=== PATIENT | female | born 1945 | race Caucasian/White ===

== ENCOUNTER 2018-06-06 11:19 | Outpatient (CLI) | payer OTHER ==
[~2018-06-06 11:19] MED LIST: NEURONTIN600 MG; SINVASTATIN; VASOTEC10 MG; [UNRECOGNIZED DRUG - OTHER]
== END 2018-06-06 16:38 | disposition home or self-care (01) ==
LOC: RAD 11:19
DX: M54.2 Cervicalgia (principal); S80.02XA Contusion of left knee, initial encounter

== ENCOUNTER 2021-07-14 19:26 | Emergency (ER) | payer OTHER ==
[~2021-07-14] VITALS: Ht 177.8 cm; Wt 83.9 kg
[2021-07-14] MEDS ORDERED: KETO10TA2 PO (22:08)
== END 2021-07-14 22:14 | disposition home or self-care (01) ==
LOC: ER 19:26
DX: S82.042A Displaced comminuted fracture of left patella, initial encounter for closed fracture (principal); M25.562 Pain in left knee; W23.0XXA Caught, crushed, jammed, or pinched between moving objects, initial encounter; Y93.89 Activity, other specified; Y92.89 Other specified places as the place of occurrence of the external cause; Y99.8 Other external cause status

== ENCOUNTER → 2024-05-29 | Emergency (ER) | payer OTHER ==
[~2024-05-29] MED LIST changes: +ALDACTONE25 MG; +DULOXETINE HCL40 MG; +ELIQUIS2.5 MG PO; +ENALAPRIL-HCTZ1 EAC1 PO; +GRALISE600 MG; +KAPSPARGO SPRI100 MG PO; +KETO10TA2 PO; +LEVO-T88 MCG PO; +VALSARTAN80 MG PO
== END | disposition expired ==
LOC: ER 13:04
DX: I46.9 Cardiac arrest, cause unspecified (principal); I10 Essential (primary) hypertension